=== PATIENT | female | born 1985 | race Caucasian/White ===

== ENCOUNTER 2017-05-18 12:50 | Emergency (ER) | payer BC ==
[2017-05-18 14:20] LABS: ADD MAN DIFF? NO
[2017-05-18 14:23] LABS: BASOPHILS % 0.2 % (0.0-2.0); EOSINOPHILS # 0.1 10^3/ul (0.0-0.5); EOSINOPHILS % 0.6 % (0.0-7.0); HEMATOCRIT 35.9 % (37.0-47.0); HEMOGLOBIN 12.2 g/dl (12.0-16.0); LYMPHOCYTES # 1.8 10^3/ul (0.8-2.9); LYMPHOCYTES % 21.9 % (15.0-51.0); MEAN CORPUSCULAR HEMOGLOBIN 29.1 pg (29.0-33.0); MEAN CORPUSCULAR VOLUME 85.7 fl (82.0-101.0); MEAN PLATELET VOLUME 9.6 fl (7.4-10.4); MONOCYTE # 0.3 10^3/ul (0.3-0.9); MONOCYTES % 3.8 % (0.0-11.0); NEUTROPHILS % 73.1 % (39.0-77.0); PLATELET COUNT 286 10^3/UL (140-415); RED BLOOD COUNT 4.19 10^6/ul (4.20-5.40); RED CELL DISTRIBUTION WIDTH 12.5 % (11.5-14.5)
[2017-05-18 14:23] LABS: WHITE BLOOD COUNT 8.1 10^3/ul (4.8-10.8)
[2017-05-18 14:42] LABS: ADD UMIC YES; UR ASCORBIC ACID NEGATIVE (NEGATIVE); UR BACTERIA FEW /HPF (NONE SEEN); UR BILIRUBIN (Dip) NEGATIVE (NEGATIVE); UR BLOOD (Dip) NEGATIVE (NEGATIVE); UR CLARITY SLIGHTLY CLOUDY (CLEAR); UR COLOR AMBER (YELLOW); UR GLUCOSE (Dip) NEGATIVE (NEGATIVE); UR KETONES (Dip) NEGATIVE (NEGATIVE); UR LEUKOCYTE ESTERASE (Dip) NEGATIVE Leu/ul (NEGATIVE); UR MUCUS MANY /HPF (NONE SEEN); UR NITRITE (Dip) POSITIVE (NEGATIVE); UR RBC 1 /HPF (0-5); UR SPECIFIC GRAVITY (Dip) 1.023 (1.003-1.030); UR SQUAMOUS EPITHELIAL CELL FEW /HPF (FEW); UR TOTAL PROTEIN (Dip) NEGATIVE (NEGATIVE); UR UROBILINOGEN (Dip) 1+ mg/dL (NEGATIVE); UR WBC 4 /HPF (0-5)
== END 2017-05-18 16:08 | disposition home or self-care (01) ==
LOC: FTE 12:50
DX: O20.0 Threatened abortion (principal); R10.2 Pelvic and perineal pain; Z3A.10 10 weeks gestation of pregnancy
CPT/HCPCS: 76801; 76817; 81001; 84702; 85025; 99284-25

== ENCOUNTER 2017-07-13 17:25 | Emergency (ER) | payer BC ==
[2017-07-13] MEDS: HYDROCODONE/APAP (5/325) TAB PO (20:23)
[2017-07-13 20:46] LABS: ADD MAN DIFF? NO
[2017-07-13 20:49] LABS: BASOPHILS % 0.2 % (0.0-2.0); EOSINOPHILS # 0.1 10^3/ul (0.0-0.5); EOSINOPHILS % 0.9 % (0.0-7.0); HEMATOCRIT 36.3 % (37.0-47.0); HEMOGLOBIN 11.9 g/dl (12.0-16.0); LYMPHOCYTES # 2.4 10^3/ul (0.8-2.9); MEAN CORPUSCULAR HEMOGLOBIN 28.7 pg (29.0-33.0); MEAN CORPUSCULAR HGB CONC 32.8 g/dl (32.0-37.0); MEAN CORPUSCULAR VOLUME 87.5 fl (82.0-101.0); MEAN PLATELET VOLUME 9.2 fl (7.4-10.4); MONOCYTE # 0.5 10^3/ul (0.3-0.9); MONOCYTES % 4.5 % (0.0-11.0); NEUTROPHIL # 7.3 10^3/ul (1.6-7.5); PLATELET COUNT 306 10^3/UL (140-415); RED BLOOD COUNT 4.15 10^6/ul (4.20-5.40); RED CELL DISTRIBUTION WIDTH 13.6 % (11.5-14.5)
[2017-07-13 20:49] LABS: WHITE BLOOD COUNT 10.2 10^3/ul (4.8-10.8)
[2017-07-13 21:03] LABS: ADD UMIC NO; UR ASCORBIC ACID NEGATIVE (NEGATIVE); UR BILIRUBIN (Dip) NEGATIVE (NEGATIVE); UR BLOOD (Dip) NEGATIVE (NEGATIVE); UR CALCIUM OXALATE CRYSTAL MODERATE /HPF (NONE SEEN); UR CLARITY SLIGHTLY CLOUDY (CLEAR); UR COLOR YELLOW (YELLOW); UR GLUCOSE (Dip) NEGATIVE (NEGATIVE); UR KETONES (Dip) NEGATIVE (NEGATIVE); UR LEUKOCYTE ESTERASE (Dip) NEGATIVE Leu/ul (NEGATIVE); UR MUCUS MODERATE /HPF (NONE SEEN); UR NITRITE (Dip) NEGATIVE (NEGATIVE); UR RBC 1 /HPF (0-5); UR SPECIFIC GRAVITY (Dip) 1.027 (1.003-1.030); UR SQUAMOUS EPITHELIAL CELL FEW /HPF (FEW); UR TOTAL PROTEIN (Dip) NEGATIVE (NEGATIVE); UR UROBILINOGEN (Dip) NEGATIVE (NEGATIVE); UR WBC 1 /HPF (0-5)
[2017-07-13 21:06] LABS: ANION GAP 17 (8-16); BLOOD UREA NITROGEN 9 mg/dl (7-20); CALCIUM 9.7 mg/dl (8.4-10.2); CARBON DIOXIDE 22 mmol/L (21-31); CHLORIDE 102 mmol/L (97-110); CREATININE 0.42 mg/dl (0.44-1.00); GLUCOSE 122 mg/dl (70-220); POTASSIUM 4.3 mmol/L (3.5-5.1); SODIUM 137 mmol/L (135-144)
== END 2017-07-13 22:01 | disposition home or self-care (01) ==
LOC: FTE 17:25
DX: O99.89 Other specified diseases and conditions complicating pregnancy, childbirth and the puerperium (principal); O99.212 Obesity complicating pregnancy, second trimester; E66.9 Obesity, unspecified; Z3A.18 18 weeks gestation of pregnancy
CPT/HCPCS: 80048; 81001; 81003; 85025; 99283

== ENCOUNTER 2017-11-22 22:37 | Observation (INO) | payer BC ==
[2017-11-23 00:23] LABS: ADD UMIC YES; UR ASCORBIC ACID NEGATIVE (NEGATIVE); UR BACTERIA FEW /HPF (NONE SEEN); UR BILIRUBIN (Dip) NEGATIVE (NEGATIVE); UR BLOOD (Dip) NEGATIVE (NEGATIVE); UR CLARITY CLOUDY (CLEAR); UR COLOR YELLOW (YELLOW); UR GLUCOSE (Dip) NEGATIVE (NEGATIVE); UR KETONES (Dip) TRACE mg/dL (NEGATIVE); UR LEUKOCYTE ESTERASE (Dip) TRACE Leu/ul (NEGATIVE); UR MUCUS MANY /HPF (NONE SEEN); UR NITRITE (Dip) NEGATIVE (NEGATIVE); UR RBC 2 /HPF (0-5); UR SPECIFIC GRAVITY (Dip) 1.029 (1.003-1.030); UR SQUAMOUS EPITHELIAL CELL FEW /HPF (FEW); UR TOTAL PROTEIN (Dip) 2+ mg/dl (NEGATIVE); UR UROBILINOGEN (Dip) 1+ mg/dL (NEGATIVE); UR WBC 7 /HPF (0-5)
[2017-11-23] MEDS ORDERED: LACTATED RINGER'S 1,000 ML IV (02:50)
[2017-11-23] MEDS ORDERED: LIDOCAINE 1% (MPF) 30 ML INJ INJ (03:00)
[2017-11-23] MEDS ORDERED: CARBOPROST 250 MCG INJ IM (03:00)
[2017-11-23] MEDS ORDERED: METHYLERGONOVINE 0.2 MG INJ IM (03:00)
[2017-11-23] MEDS ORDERED: BUTORPHANOL 2 MG INJ IV (03:00)
[2017-11-23] MEDS ORDERED: OXYTOCIN 30 UNITS/LR 500 ML IV ×3 (03:00)
[2017-11-23] MEDS ORDERED: IBUPROFEN 600 MG TAB PO (03:00)
[2017-11-23] MEDS ORDERED: MISOPROSTOL 200 MCG TAB PR (03:00)
[2017-11-23] MEDS: LACTATED RINGER'S 1,000 ML IV* ×2 (03:31→11:56)
[2017-11-23 03:45] LABS: ADD MAN DIFF? NO
[2017-11-23] MEDS ORDERED: GLUCOSE GEL 15 GRAM TUBE PO ×2 (03:45)
[2017-11-23] MEDS ORDERED: DEXTROSE 50% 50 ML SYRINGE IV ×2 (03:45)
[2017-11-23] MEDS ORDERED: GLUCAGON 1 MG INJ IM (03:45)
[2017-11-23] MEDS ORDERED: GLUCOSE GEL 15 GRAM TUBE BUCCAL (03:45)
[2017-11-23 03:46] LABS: WHITE BLOOD COUNT 9.9 10^3/ul (4.8-10.8)
[2017-11-23 03:46] LABS: BASOPHILS % 0.3 % (0.0-2.0); EOSINOPHILS # 0.1 10^3/ul (0.0-0.5); EOSINOPHILS % 0.5 % (0.0-7.0); HEMATOCRIT 36.1 % (37.0-47.0); HEMOGLOBIN 11.9 g/dl (12.0-16.0); MEAN CORPUSCULAR HEMOGLOBIN 27.9 pg (29.0-33.0); MEAN CORPUSCULAR VOLUME 84.5 fl (82.0-101.0); MEAN PLATELET VOLUME 9.8 fl (7.4-10.4); MONOCYTE # 0.6 10^3/ul (0.3-0.9); MONOCYTES % 6.1 % (0.0-11.0); NEUTROPHIL # 6.2 10^3/ul (1.6-7.5); NEUTROPHILS % 62.8 % (39.0-77.0); PLATELET COUNT 251 10^3/UL (140-415); RED BLOOD COUNT 4.27 10^6/ul (4.20-5.40); RED CELL DISTRIBUTION WIDTH 14.6 % (11.5-14.5)
[2017-11-23 04:06] LABS: INR 0.96; PROTIME 12.9 Sec (11.9-14.9)
[2017-11-23 04:11] LABS: GLUCOSE 83 mg/dl (70-220)
[2017-11-23] MEDS ORDERED: ACCU-CHEK XX (05:00)
[2017-11-23] MEDS: DEXTROSE 5%-LR 1,000 ML IV (15:59)
[2017-11-23 22:38] LABS: RAPID PLASMA REAGIN NONREACTIVE (NR)
== END 2017-11-23 19:32 | disposition home or self-care (01) ==
LOC: OBT 22:37 → L-D 22:45
DX: O47.1 False labor at or after 37 completed weeks of gestation (principal); Z3A.37 37 weeks gestation of pregnancy; O24.410 Gestational diabetes mellitus in pregnancy, diet controlled
CPT/HCPCS: 76815; 76818; 81001; 82947; 82962; 85025; 85610; 85730; 86592; 86850; 86900; 86901; 99217

== ENCOUNTER 2017-12-02 09:41 | Inpatient (IN) | payer BC ==
[2017-12-02] MEDS ORDERED: METHYLERGONOVINE 0.2 MG INJ IM (16:00)
[2017-12-02] MEDS ORDERED: LIDOCAINE 1% (MPF) 30 ML INJ INJ (16:00)
[2017-12-02] MEDS ORDERED: IBUPROFEN 600 MG TAB PO (16:00)
[2017-12-02] MEDS ORDERED: OXYTOCIN 30 UNITS/LR 500 ML IV ×2 (16:00)
[2017-12-02] MEDS ORDERED: CARBOPROST 250 MCG INJ IM (16:00)
[2017-12-02] MEDS ORDERED: BUTORPHANOL 2 MG INJ IV (16:00)
[2017-12-02] MEDS ORDERED: MISOPROSTOL 200 MCG TAB PR (16:00)
[2017-12-02 16:10] LABS: ADD MAN DIFF? NO
[2017-12-02] MEDS: LACTATED RINGER'S 1,000 ML IV ×2 (16:10→20:37)
[2017-12-02 16:12] LABS: WHITE BLOOD COUNT 9.3 10^3/ul (4.8-10.8)
[2017-12-02 16:12] LABS: BASOPHILS % 0.2 % (0.0-2.0); EOSINOPHILS % 0.3 % (0.0-7.0); HEMATOCRIT 37.2 % (37.0-47.0); HEMOGLOBIN 12.3 g/dl (12.0-16.0); LYMPHOCYTES # 2.2 10^3/ul (0.8-2.9); LYMPHOCYTES % 23.6 % (15.0-51.0); MEAN CORPUSCULAR HEMOGLOBIN 27.9 pg (29.0-33.0); MEAN CORPUSCULAR HGB CONC 33.1 g/dl (32.0-37.0); MEAN CORPUSCULAR VOLUME 84.4 fl (82.0-101.0); MONOCYTE # 0.5 10^3/ul (0.3-0.9); MONOCYTES % 4.9 % (0.0-11.0); NEUTROPHIL # 6.6 10^3/ul (1.6-7.5); NEUTROPHILS % 70.7 % (39.0-77.0); PLATELET COUNT 271 10^3/UL (140-415); RED BLOOD COUNT 4.41 10^6/ul (4.20-5.40); RED CELL DISTRIBUTION WIDTH 14.9 % (11.5-14.5)
[2017-12-02 16:17] LABS: INR 0.89; PARTIAL THROMBOPLASTIN TIME 26.7 Sec (25.0-35.0); PROTIME 12.1 Sec (11.9-14.9); PT RATIO 0.9
[2017-12-02] MEDS: OXYTOCIN 30 UNITS/LR 500 ML IV (17:21)
[2017-12-02 23:14] LABS: ALANINE AMINOTRANSFERASE 31 IU/L (13-69); ALBUMIN 3.3 g/dl (3.3-4.9); ALBUMIN/GLOBULIN RATIO 0.97; ALKALINE PHOSPHATASE 172 IU/L (42-121); ANION GAP 12 (8-16); ASPARTATE AMINO TRANSFERASE 19 IU/L (15-46); BILIRUBIN,INDIRECT 0.4 mg/dl (0-1.1); BILIRUBIN,TOTAL 0.4 mg/dl (0.2-1.3); BLOOD UREA NITROGEN 11 mg/dl (7-20); CARBON DIOXIDE 19 mmol/L (21-31); CHLORIDE 110 mmol/L (97-110); CREATININE 0.48 mg/dl (0.44-1.00); GLUCOSE 90 mg/dl (70-220); POTASSIUM 3.8 mmol/L (3.5-5.1); SODIUM 137 mmol/L (135-144); TOTAL PROTEIN 6.7 g/dl (6.1-8.1); URIC ACID 4.8 mg/dl (3.1-7.9)
[2017-12-02 23:40] LABS: ADD UMIC YES; UR ASCORBIC ACID NEGATIVE (NEGATIVE); UR BILIRUBIN (Dip) NEGATIVE (NEGATIVE); UR BLOOD (Dip) NEGATIVE (NEGATIVE); UR CLARITY CLEAR (CLEAR); UR COLOR YELLOW (YELLOW); UR GLUCOSE (Dip) NEGATIVE (NEGATIVE); UR KETONES (Dip) NEGATIVE (NEGATIVE); UR LEUKOCYTE ESTERASE (Dip) TRACE Leu/ul (NEGATIVE); UR NITRITE (Dip) NEGATIVE (NEGATIVE); UR RBC 0 /HPF (0-5); UR SPECIFIC GRAVITY (Dip) 1.016 (1.003-1.030); UR TOTAL PROTEIN (Dip) 1+ mg/dl (NEGATIVE); UR UROBILINOGEN (Dip) NEGATIVE (NEGATIVE); UR WBC 1 /HPF (0-5)
[2017-12-03] MEDS: ACCU-CHEK XX ×2 (02:23→05:47)
[2017-12-03] MEDS: LACTATED RINGER'S 1,000 ML IV ×3 (02:37→05:47)
[2017-12-03] MEDS ORDERED: FENTAnyl 2MCG/ML-ROPIV 0.2% 100 ML (03:16)
[2017-12-03] MEDS ORDERED: NALOXONE (0.4 MG/ML) INJ IV (04:00)
[2017-12-03] MEDS ORDERED: ONDANSETRON 4 MG INJ IV (04:00)
[2017-12-03] MEDS ORDERED: EPHEDrine SULFATE 50 MG/5 ML SYG IV (04:00)
[2017-12-03] MEDS: FENTAnyl 2MCG/ML-ROPIV 0.2% 100 ML BAG EPI (06:13)
[2017-12-03] MEDS: DEXTROSE 5%-LR 1,000 ML IV (07:05)
[2017-12-03] MEDS ORDERED: METHYLERGONOVINE 0.2 MG INJ IM (10:30)
[2017-12-03] MEDS ORDERED: MISOPROSTOL 200 MCG TAB PR (10:30)
[2017-12-03] MEDS ORDERED: CARBOPROST 250 MCG INJ IM (10:30)
[2017-12-03] MEDS ORDERED: OXYTOCIN 30 UNITS/LR 500 ML IV (10:30)
[2017-12-03] MEDS ORDERED: NACL 0.9% 3 ML SYG IV (10:30)
[2017-12-03] MEDS: OXYTOCIN 30 UNITS/LR 500 ML IV (10:34)
[2017-12-03] MEDS: DIPHENHYDRAMINE 50 MG INJ IV (11:55)
[2017-12-03] MEDS: IBUPROFEN 600 MG TAB PO ×2 (13:22→17:41)
[2017-12-03] MEDS: BENZOCAINE 20% 56 ML SPRAY TOP (13:22)
[2017-12-03] MEDS: DIBUCAINE 1% 30 GM OINT TOP (13:23)
[2017-12-03] MEDS: WITCH HAZEL/GLYCERIN PAD PR (13:23)
[2017-12-03] MEDS: LANOLIN 7 GM TUBE TOP (13:24)
[2017-12-03 17:34] LABS: RAPID PLASMA REAGIN NONREACTIVE (NR)
[2017-12-04] MEDS: OXYCODONE/ASPIRIN (4.88/325) TAB PO ×2 (00:38→08:24)
[2017-12-04] MEDS: IBUPROFEN 600 MG TAB PO ×4 (06:00→18:19)
[2017-12-04 08:28] LABS: ADD MAN DIFF? NO
[2017-12-04 08:34] LABS: BASOPHILS % 0.2 % (0.0-2.0); EOSINOPHILS # 0.1 10^3/ul (0.0-0.5); EOSINOPHILS % 0.9 % (0.0-7.0); HEMOGLOBIN 11.2 g/dl (12.0-16.0); LYMPHOCYTES # 2.6 10^3/ul (0.8-2.9); LYMPHOCYTES % 32.5 % (15.0-51.0); MEAN CORPUSCULAR HEMOGLOBIN 28.2 pg (29.0-33.0); MEAN CORPUSCULAR HGB CONC 32.9 g/dl (32.0-37.0); MEAN CORPUSCULAR VOLUME 85.6 fl (82.0-101.0); MEAN PLATELET VOLUME 9.8 fl (7.4-10.4); MONOCYTE # 0.4 10^3/ul (0.3-0.9); NEUTROPHILS % 61.2 % (39.0-77.0); PLATELET COUNT 236 10^3/UL (140-415); RED BLOOD COUNT 3.97 10^6/ul (4.20-5.40)
[2017-12-04 08:34] LABS: WHITE BLOOD COUNT 8.1 10^3/ul (4.8-10.8)
[2017-12-05] MEDS: IBUPROFEN 600 MG TAB PO ×3 (00:33→11:54)
[2017-12-05] MEDS: WITCH HAZEL/GLYCERIN PAD PR (09:23)
[2017-12-05] MEDS: LANOLIN 7 GM TUBE TOP (14:51)
== END 2017-12-05 15:10 | disposition home or self-care (01) | DRG 775 ==
LOC: OBT 09:41 → PP1 12-03 12:21 → L-D 09:41 → OBT 16:46 → L-D 16:00
PROVIDERS: Obstetrics & Gynecology
PROC: 3E033VJ Introduction of Other Hormone into Peripheral Vein, Percutaneous Approach (ICD-10-PCS; 2017-12-02)
PROC: 10E0XZZ Delivery of Products of Conception, External Approach (ICD-10-PCS; principal; 2017-12-03)
PROC: 0HQ9XZZ Repair Perineum Skin, External Approach (ICD-10-PCS; 2017-12-03)
DX: O36.8130 Decreased fetal movements, third trimester, not applicable or unspecified (principal); O24.429 Gestational diabetes mellitus in childbirth, unspecified control; O70.0 First degree perineal laceration during delivery; Z3A.39 39 weeks gestation of pregnancy; Z37.0 Single live birth
CPT/HCPCS: 62319; 76815; 76818; 80053; 81001; 82962; 84560; 85025; 85384; 85610; 85730; 86592; 86850; 86900; 86901